=== PATIENT | female | born 1995 | race Caucasian/White ===

== ENCOUNTER 2020-11-02 13:29 | Emergency (ER) | payer OTHER ==
[2020-11-02 13:35] VITALS: BP 134/88; PULSE 84; TEMP 98.7; BMI 34.3
[2020-11-02] MEDS ORDERED: diazePAM 2 MG TABLET PO ONE (14:18)
[2020-11-02] MEDS ORDERED: KETOROLAC TROMETHAMINE 60 MG/2 ML VIAL IM ONE (14:18)
[2020-11-02] MEDS ORDERED: KETOROLAC TROMETHAMINE 60 MG/2 ML VIAL ONE (14:20)
[2020-11-02] MEDS ORDERED: diazePAM 2 MG TABLET ONE (14:20)
== END 2020-11-02 15:04 | disposition home or self-care (01) ==
LOC: JERFT 13:29 → JER 13:29 → JERFT 15:04
PROC: 3E0233Z Introduction of Anti-inflammatory into Muscle, Percutaneous Approach (ICD-10-PCS; principal; 2020-11-02)
DX: M43.6 Torticollis (principal)
CPT/HCPCS: 99284-25

== ENCOUNTER 2023-07-14 12:30 | Emergency (ER) | payer OTHER ==
[2023-07-14 12:39] VITALS: BMI 34.2
[2023-07-14] MEDS ORDERED: ACETAMINOPHEN 325 MG TABLET (FP) ONE (13:18)
[2023-07-14] MEDS: ACETAMINOPHEN 325 MG TABLET (FP) PO ONE (13:36)
[2023-07-14 13:41] LABS: HCG,QUALITATIVE URINE Negative
[2023-07-14 13:50] LABS: EPI CELLS 21 /uL (0-25.1); HYALINE CASTS 1 /uL (0-3.1); PH,URINE 5.5 (5.0-8.0); URINE APPEARANCE CLEAR; URINE BACTERIA 184 /uL (0-1359); URINE BILIRUBIN NEGATIVE (NEGATIVE); URINE COLOR YELLOW; URINE GLUCOSE (UA) NEGATIVE (NEGATIVE); URINE KETONE NEGATIVE (NEGATIVE); URINE LEUK ESTERASE 1+ (NEGATIVE); URINE NITRITE NEGATIVE (NEGATIVE); URINE PROTEIN TRACE (NEGATIVE); URINE UROBILINOGEN 0.2 mg/dL (0.2-1.0); URINE WBC 136 /uL (0-25.8)
[2023-07-14 14:04] LABS: URINE RBC 26 /uL (0-23.9)
[2023-07-14] MEDS ORDERED: CEPHALEXIN MONOHYDRATE 500 MG CAPSULE (UD) ONE (14:11)
[2023-07-14] MEDS: CEPHALEXIN MONOHYDRATE 500 MG CAPSULE (UD) PO ONE (14:13)
[2023-07-14 15:38] VITALS: BP 134/65; PULSE 95; RESP 16; TEMP 99.6
== END 2023-07-14 16:06 | disposition home or self-care (01) ==
LOC: JER 12:30
DX: R50.9 Fever, unspecified (principal); M79.10 Myalgia, unspecified site; R39.15 Urgency of urination; J02.9 Acute pharyngitis, unspecified; R09.81 Nasal congestion; R10.2 Pelvic and perineal pain; N39.0 Urinary tract infection, site not specified; J06.9 Acute upper respiratory infection, unspecified; Z20.822 Contact with and (suspected) exposure to COVID-19
CPT/HCPCS: 0241U-QW; 81003; 84703; 87086; 99283-25